=== PATIENT | female | born 1960 | race Hispanic/Latino ===

== ENCOUNTER 2025-09-02 23:34 | Emergency (ER) | payer OTHER ==
[~2025-09-02] VITALS: Ht 167.6 cm; Wt 61.2 kg
--- NOTE | 2025-09-03 00:48 | NUR ---
OBSERVED DRINKING PO FLUIDS. TOLERATING WELL
--- NOTE | 2025-09-03 01:15 | ERN ---
ED Note History of Present Illness Stated Complaint: RT ARTHRITIC PAIN Chief Complaint: Upper Extremity Pain/Injury Time Seen by MD: 23:39 Time Seen by Midlevel: 23:39 Dictation: The patient is a 65-year-old female with a history of arthritis, diabetes who presents to the emergency department with complaints of right shoulder pain. Patient reports she is having arthritis exacerbation because she was doing a lot of [place] her [place] today. Reports she usually gets this pain. Patient otherwise denies any shortness of breath, denies any chest pain, denies any nausea or vomiting. Denies any fevers. Patient reports pain is worse with movement Allergies: Coded Allergies: No Known Allergies (Unverified Allergy, Unknown, 09/02/25) Past Medical History Past Medical History: Arthritis Surgical History: Hysterectomy RN Note Reviewed/Agreed w/PFSH: Yes Review of System Dictation Constitutional: Negative for fever,chills, and weight loss Eyes: Negative for injury, pain,redness, and discharge ENT: Negative for injury,pain or swelling Cardiovascular: Negative for chest pain, palpitations, and edema Respiratory: Negative for shortness of breath, cough, and wheezing, Abdomen/GI: Negative for abdominal pain, nausea, vomiting, diarrhea, and constipation Back: Negative for injury and pain : Negative for injury, bleeding and discharge MS/Extremity: Positive for right shoulder pain Skin: Negative for rash, and discoloration Neuro: Negative for headache, weakness, numbness, tingling, and seizure Psych: Negative for suicide ideation, homicidal ideation, and hallucinations Initial Vital Sign VS Vital Signs Date Time Temp Pulse Resp B/P (MAP) Pulse Ox O2 Delivery O2 Flow Rate FiO2 09/02/25 23:36 98.2 78 16 154/84 99 Room Air 09/03/25 01:47 0 21 Physical Exam Dictation Vital Signs reviewed General Appearance: Alert, oriented x 3, no acute distress, well developed, nourished. Head and Face: non-traumatic. Eyes: PERRL, pink conjunctivas, eyelid no trauma, anterior chamber with arcus senilis. Ears: Pinnas intact and no signs of trauma or erythema ear canals clear and no discharge TM no erythema Nose: No discharge, no bleeding. Oropharynx: Mouth normal, tongue pink. pharynx clear,no erythema, tonsils no exudates, no abscesses noted, mucous membrane moist Neck: Supple, non-tender, no thyromegaly, no masses, no JVD, no bruits Breast:Deferred Chest:No tenderness, no crepitus, no paradoxical movement, no retractions Lungs:Clear, well-ventilated, symmetric, no rales, no wheezing, no rhonchi, no stridor, good breath sounds bilaterally Heart: Regular rate, regular rhythm, no murmur, no gallops Vascular: no peripheral edema, radial pulses 3+ bilaterally Abdomen: Soft, positive bowel sounds, nondistended, no guarding, nontender, no rebound, no masses no hepatomegaly, no splenomegaly, no Way's sign, no hernias. Rectal: Deferred Genital: Deferred Neurological: Normal speech, motor function intact, sensory function intact Musculoskeletal: Neck nontender, full range of motion, back nontender, full range of motion, Extremities: nontender, right shoulder limited range of motion, tenderness to palpation Skin: Color pink, dry, no turgor, no rash, no lacerations, no abrasions, no cont usions. Lymphatic: Deferred Results (Laboratory/Radiology) Laboratory/Radiology REASON: pain ORDERING PHYSICIAN: MASOUD MEDINA GLASS SELECTOR PROCEDURE: SHOL 2V RT - SHOULDER COMP 2+VWS RT EXAM: CR Right Shoulder, 2 views. CLINICAL HISTORY: Pain. COMPARISON: None provided. FINDINGS: No acute fracture or aggressively appearing osseous lesion. Decreased bone mineralization. Unremarkable joint spaces. The soft tissues are unremarkable. IMPRESSION: No acute bony changes. Osteopenia. /[place] Labs Reviewed?: Yes EKG: (+) rhythm (Sinus rhythm) EKG Comment: Date:09/03/2025 Time:0120 Ventricular rate:76 TN interval:163 QRS duration:92 QT/QTc:396/446 EKG interpretation: Sinus rhythm Reviewed by ED Attending no STEMI ED Course ED Course Orders Procedure Category Date Status Time Shoulder Comp 2+Vws Rt RAD 09/02/25 Resulted 23:45 Ketorolac PHA 09/03/25 Complete Tromethamine 30mg/Ml 00:00 Triamcinolone Acet PHA 09/03/25 Complete 40mg/Ml 1ml (Kenalog 00:00 12 Lead Ekg Tracing- EKG 09/03/25 Complete Technical 01:21 Ondansetron Odt 4mg PHA 09/03/25 Complete Tab (Zofran 4mg Odt) 02:30 Morphine 4mg Syg PHA 09/03/25 Complete (Morphine 4mg Syg) 02:30 Current Medications Medications (Trade) Dose Ordered Sig/Viet Route PRN Reason Start Time Stop Time Status Last Admin Dose Admin Ketorolac Tromethamine (toRADol) 30 mg ONCE ONCE IM 09/03/25 00:00 09/03/25 00:01 DC 09/03/25 01:34 Morphine Sulfate (morPHINE 4MG SYG) 4 mg ONCE ONCE IM 09/03/25 02:30 09/03/25 02:31 DC 09/03/25 02:49 Ondansetron HCl (zoFRAN 4MG ODT) 4 mg ONCE ONCE SL 09/03/25 02:30 09/03/25 02:31 DC 09/03/25 02:49 Triamcinolone Acetonide (Kenalog 40) 40 mg ONCE ONCE IM 09/03/25 00:00 09/03/25 00:01 DC 09/03/25 01:34 Vital Signs Date Time Temp Pulse Resp B/P (MAP) Pulse Ox O2 Delivery O2 Flow Rate FiO2 09/03/25 01:47 98.4 72 18 153/61 96 Room Air* 0 21 09/02/25 23:36 98.2 78 16 154/84 99 Room Air Medical Decision Making MDM The patient is a 65-year-old female with a history of arthritis, diabetes who presents to the emergency department with complaints of right shoulder pain. Patient reports she is having arthritis exacerbation because she was doing a lot of [place] today. Reports she usually gets this pain. Patient otherwise denies any shortness of breath, denies any chest pain, denies any nausea or vomiting. Denies any fevers. Patient reports pain is worse with movement X-ray showed no acute fractures or dislocations. Patient's pain significantly improved with the pain medications. Patient otherwise in no acute distress, nontoxic appearance, stable vital signs. Patient will be discharged to follow up with PCP. Differential diagnosis: Arthritis, shoulder dislocation, chronic pain Need for hospitalization: Patient does not meet criteria for hospitalization. There are no social concerns with this patient. DX & DISP Disposition: Discharge Departure Impression: Primary Impression: Right shoulder pain Additional Impression: Arthritis of right shoulder Condition: Stable Additional Instructions: Please follow up with your primary doctor in 1-2 days. Continue taking your pain medication at home as prescribed by your doctor. If anything worsens please return to ER. FOLLOW-UP WITH PRIMARY CARE PROVIDER IN 1 TO 2 DAYS. TAKE MEDICATIONS DIRECTED HERE IN THE EMERGENCY ROOM. OKAY TO CONTINUE HOME MEDICATIONS UNLESS OTHERWISE DISCUSSED DURING YOUR VISIT IN THE EMERGENCY ROOM TODAY. RETURN TO YOUR NEAREST EMERGENCY ROOM IF SYMPTOMS WORSEN OR IF THERE IS NO IMPROVEMENT. CALL 911 IF YOU NEED IMMEDIATE ASSISTANCE. TAKE TYLENOL QCET-PEX-UIAOSUN NEEDED AND IF NO CONTRAINDICATIONS ARE PRESENT. INCREASE ORAL HYDRATION. A WOUND CULTURE OR URINE CULTURE WAS ORDERED HERE IN THE EMERGENCY ROOM DEPARTMENT PLEASE FOLLOW-UP WITH PRIMARY CARE PROVIDER AND ADVISE THEM TO GET REPEAT PORTS FROM OUR FACILITY. IF YOU HAD ANY ROMULO WRAP/SPLINTS THAT WERE APPLIED HERE, PLEASE DO NOT REMOVE THEM UNTIL YOU SEE YOUR PRIMARY CARE OR SPECIALTY. Referrals: NONE (PCP) Time of Disposition: 02:58 I have reviewed the case, and I agree with, Diagnosis and Plan MASOUD MEDINAP Sep 03, 2025 01:15
--- NOTE | 2025-09-03 01:19 | HMCIMG ---
EXAM: CR Right Shoulder, 2 views. CLINICAL HISTORY: Pain. COMPARISON: None provided. FINDINGS: No acute fracture or aggressively appearing osseous lesion. Decreased bone mineralization. Unremarkable joint spaces. The soft tissues are unremarkable. IMPRESSION: No acute bony changes. Osteopenia. /[place]
--- NOTE | 2025-09-03 01:30 | EKG ---
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
[2025-09-03] MEDS: TRIAMCINOLONE ACETONIDE 40 MG/ML 1ML VIAL IM ONE (01:34)
[2025-09-03 01:47] VITALS: BP 153/61; PULSE 72; RESP 18; TEMP 98.5; O2SAT 96
--- NOTE | 2025-09-03 02:57 | NUR ---
SLING APPLIED TO R ARM, TOLERATED WELL
== END 2025-09-03 03:02 | disposition home or self-care (01) ==
LOC: EDH 23:34
DX: M19.011 Primary osteoarthritis, right shoulder (principal); M25.511 Pain in right shoulder; E11.9 Type 2 diabetes mellitus without complications; Z90.710 Acquired absence of both cervix and uterus
CPT/HCPCS: 99284; 73030; 96372 ×3; 93005; J1885; J2270; J3301

== ENCOUNTER 2025-09-15 07:40 | Emergency (ER) | payer OTHER ==
[~2025-09-15] VITALS: Ht 170.2 cm; Wt 62.6 kg
--- NOTE | 2025-09-15 07:53 | NUR ---
PATIENT PLACED IN ROOM
--- NOTE | 2025-09-15 08:04 | ERN ---
General Chief Complaint: Mechanical Fall Stated Complaint: FALL, HEAD INJURY, LT RIB PAIN Time Seen by MD: 07:43 Source: patient History of Present Illness Initial Comments My Patient, 65-year-old female, presented to the emergency department today with complaint of fall. Patient states that while feeding her dogs, she tripped over and fell down. She developed bruising around her right eye as well as left lower rib pain with mild pain in right side of neck. She denies loss of consciousness. She denies loss of sensation, headache or motor weakness. She denies any change in vision. Timing/Duration: 24 hours Severity: moderate Allergies: Coded Allergies: No Known Allergies (Unverified Allergy, Unknown, 09/02/25) Home Meds Active Scripts Azithromycin (Azithromycin) 250 Mg Tablet, 1 TAB PO AD for 5 Days, #6 TAB 0 Refills 2 the first day followed by 1 for days 2-5 Prov:ZACK GALE MD 09/15/25 Gabapentin (Gabapentin) 100 Mg Capsule, 1 CAP PO TID for 10 Days, #30 CAP 0 Refills Prov:ZACK GALE MD 09/15/25 Past Medical History Past Medical History: Arthritis, Diabetes-Type II Past Surgical History: Hysterectomy Constitutional: (-) chills, (-) diaphoresis, (-) fever, (-) malaise, (-) weakness, (-) other documentation EENTM: (-) eye pain, (-) blurred vision, (-) tearing, (-) double vision, (-) ear pain, (-) ear discharge, (-) nose pain, (-) nose congestion, (-) throat pain, (-) Throat swelling, (-) mouth pain, (-) tooth pain, (-) mouth swelling, (-) other documentation Respiratory: (-) cough, (-) orthopnea, (-) short of breath, (-) stridor, (-) wheezing, (-) other documentation Cardiovascular: (+) chest pain (Left lower pain ) Gastrointestinal/Abdominal: (-) nausea, (-) vomiting, (-) diarrhea, (-) abdominal pain, (-) abdominal distention, (-) constipation, (-) rectal bleeding, (-) dark stool/melena, (-) other documentation Genitourinary: (-) vaginal discharge, (-) vaginal bleeding, (-) dysuria, (-) frequency, (-) hematuria, (-) pain, (-) other documentation Musculoskeletal: (+) Neck pain, (+) joint pain (History of rheumatoid arthritis); (-) back pain, (-) Flank Pain, (-) joint swelling, (-) muscle pain, (-) muscle stiffness, (-) gout, (-) other documentation Skin: (+) contusion; (-) laceration, (-) abrasion, (-) abscess, (-) rash, (-) change in color, (-) change in hair, (-) change in nails, (-) diaphoresis, (-) dryness, (-) other documentation Neuro: (-) altered mental status, (-) headache, (-) syncope, (-) paralysis, (-) numbness, (-) seizure, (-) pre-existing deficit, (-) tremors, (-) weakness, (-) dizziness, (-) slurred speech, (-) vertigo, (-) other documentation Psych: (-) depression, (-) suicidal ideation, (-) anxiety, (-) emotional proble ms, (-) auditory hallucinations, (-) visual hallucinations Hematologic/Lymphatic: (-) anemia, (-) blood clots, (-) easy bleeding, (-) easy bruising, (-) swollen glands, (-) other documentation Physical Exam General Appearance: (+) no apparent distress Orientation: (+) alert, (+) oriented x 3 Eye: bilateral eye normal inspection, bilateral eye EOMI Ear, Nose, Throat: (+) hearing grossly normal, (+) normal ENT inspection, (+) moist mucous membraine Neck: (+) normal inspection, (+) supple, (+) full range of motion Respiratory: (+) lungs clear, (+) well ventilated, (+) other documentation (Pain with palpation on left lower chest) Heart: (+) regular, (+) no gallop Vascular: (+) no edema Gastrointestinal: (+) soft, (+) non-tender, (+) no organomegaly, (+) bowel sound present Back: (+) normal inspection, (+) no CVA tenderness, (+) no vertebral tenderness Extremities: (+) normal range of motion, (+) non-tender, (+) normal inspection Neurologic/Psychiatric: (+) normal speech, (+) no motor defecits, (+) no sensory deficits Results Laboratory and Microbiology Lab and Micro Result Laboratory Tests Test 09/15/25 08:00 White Blood Count 13.7 K/uL (4.8-10.8) H Red Blood Count 4.36 MIL/uL (4.00-5.50) Hemoglobin 12.5 g/dL (12.0-16.0) Hematocrit 38.1 % (36-48) Mean Corpuscular Volume 87.4 fL (79-99) Mean Corpuscular Hemoglobin 28.7 pg (27.0-33.0) Mean Corpuscular Hemoglobin Concent 32.8 g/dL (32.0-36.0) Red Cell Distribution Width 13.9 % (11.0-15.5) Platelet Count 281 K/uL (130-400) Mean Platelet Volume 10.1 fL (7.5-10.5) Nucleated Red Blood Cells 0.0 % (0.0-0.19) Sodium Level 137 mmol/L (136-145) Potassium Level 4.1 mmol/L (3.5-5.1) Chloride Level 100 mmol/L (101-111) L Carbon Dioxide Level 27 mmol/L (21-32) Blood Urea Nitrogen 22 mg/dL (7-18) H Creatinine 0.8 mg/dL (0.5-1.0) Glomerular Filtration Rate Calc 81 mL/min (>90) Random Glucose 219 mg/dL (70-105) H Total Calcium 9.2 mg/dL (8.5-10.1) Troponin I High Sensitivity 5 ng/L (4-50) EKG/XRAY/US/CT/MRI EKG Comment Rate: 80 P: 47 DE: 171 QRS: 26 QRSD: 87 T: 33 QT: 367 QTc: [address] elevation X-RAY Comment PATIENT: PARUL BRAGA MR#: [id number] : 1960 SEX: F AGE: 65 LOCATION: [facility] ORDER 08 STATUS: REG REPORT#: [id number] SERVICE REASON: Fall with point tenderness on left lower chest ORDERING PHYSICIAN: ZACK GALE MD PROCEDURE: RIB LT W C - RIBS UNI LT W PA CHEST 3+VWS EXAM: CR left Rib, 5 Views. CLINICAL HISTORY: Fall with point tenderness on the left lower chest COMPARISON: None provided. FINDINGS: LUNGS: The visualized lungs appear essentially clear. PLEURAL SPACES: No evidence of pneumothorax. No pleural effusion. BONES: Acute fracture of the left eighth rib. IMPRESSION: Acute hairline fracture of left eighth rib. /[place] DICTATED BY: MADHU BLANCO Jr., MD DATE: 09/15/25 1037 ELECTRONICALLY SIGNED BY: MADHU BLANCO Jr., MD DATE: 09/15/25 1037 PATIENT: PARUL BRAGA MR#: [id number] : 1960 SEX: F AGE: 65 LOCATION: [facility] ORDER 1 STATUS: REG REPORT#: [id number] SERVICE 7 REASON: Fall with point tenderness on left lower chest ORDERING PHYSICIAN: ZACK GALE MD PROCEDURE: CERV 4 5VW - CERV SPINE 4-5 VWS EXAM: CR Cervical spine, 3 views. CLINICAL HISTORY: Fall with point tenderness on the left lower chest. COMPARISON: None provided. FINDINGS: Mild osteopenia. Loss of cervical lordosis. Degenerative reduction in disc space at C4-C5, C5-C6, and C6-C7 levels with a degenerative anterior osteophyte. Minimal retrolisthesis of C4 over C5. Multilevel uncinate process hypertrophy and facet arthropathy from the C4-C7 level. Cervical alignment is within normal limits. Normal vertebral body heights. No acute fracture. The prevertebral soft tissues are within normal limits. The included lungs are clear. IMPRESSION: No acute bony changes. Mild osteopenia. Loss of cervical lordosis. Minimal retrolisthesis of C4 over C5. Moderate to severe degenerative changes in the cervical spine at C4-C5, C5-C6, and C6-C7 levels. /[place] DICTATED BY: MADHU BLANCO Jr., MD DATE: 09/15/25 100 ELECTRONICALLY SIGNED BY: MADHU BLANCO Jr., MD DATE: 09/15/[address] Scan Comment PATIENT: PARUL BRAGA MR#: [id number] : 1960 SEX: F AGE: 65 LOCATION: [facility] ORDER 9 STATUS: REG ER REPORT#: [id number] SERVICE [id number] REASON: History of fall with bruising around right eye ORDERING PHYSICIAN: ZACK GALE MD PROCEDURE: ORB IAC WO - CT ORB/AVELINA/EAR W/O CONTRAST EXAM: CT Head Without IV contrast. CLINICAL HISTORY: History of fall with bruising around right eye TECHNIQUE: Axial computed tomography images of the head/brain without intravenous contrast. COMPARISON: None provided. FINDINGS: BRAIN: No evidence of acute hemorrhage. No mass lesion. No CT evidence for acute territorial infarct. No midline shift or extra-axial collections. VENTRICLES: No hydrocephalus. ORBITS: The orbits are unremarkable. SINUSES AND MASTOIDS: The paranasal sinuses and mastoid air cells are clear. BONES: No fracture. SOFT TISSUES: Soft tissue edema in the right periorbital region. A few soft tissue calcifications are evident adjacent to the right zygomatic arch. Vascular calcifications adjacent to the bilateral masseter regions. IMPRESSION: No acute intracranial abnormality. /[place] DICTATED BY: MADHU BLANCO Jr., MD DATE: 09/15/25 1032 ELECTRONICALLY SIGNED BY: MADHU BLANCO Jr., MD DATE: 09/15/251031 MDM MDM: Differential diagnosis: Left rib fracture, fall This patient, 65-year-old female, presented to the emergency after a fall. She complained of left lower chest pain. She denied loss of consciousness, headache, any focal neurologic deficit. She denied being on blood thinner. * CBC was done which showed mild leukocytosis. * BMP, troponin and EKG were taken. * Left rib x-ray series was done which showed acute hairline fracture of left 8th rib. * CT orbit was done which showed no acute intracranial abnormality. * X-ray cervical spine was done which showed No acute bony changes. * Patient was given Tylenol. * Her condition is stable. She is being discharged with instruction to start gabapentin for pain. She will be provided with azithromycin due to mild leukocytosis. She has also been provided with inhaled spirometry and has been educated regarding how to use it. ED Course Orders Procedure Category Date Status Time Cbc Without LAB 09/15/25 Complete Differential 07:48 Basic Metabolic Panel LAB 09/15/25 Complete 07:48 Troponin I High LAB 09/15/25 Complete Sensitivity 07:48 12 Lead Ekg Tracing- EKG 09/15/25 Complete Technical 07:48 Acetaminophen 500mg PHA 09/15/25 Complete Tab (Tylenol 500mg T 08:00 Ct Orb/[place]/Ear W/O CT 09/15/25 Resulted Contrast 07:48 Ribs Uni Lt W Pa RAD 09/15/25 Resulted Chest 3+Vws 07:58 Cerv Spine 4-5 Vws RAD 09/15/25 Resulted 07:58 Cv Rt Incentive CPOE 09/15/25 Transmitted Spirometry 09:44 Current Medications Medications (Trade) Dose Ordered Sig/Viet Route PRN Reason Start Time Stop Time Status Last Admin Dose Admin Acetaminophen (TYLenol 500MG TAB) 500 mg ONCE ONCE PO 09/15/25 08:00 09/15/25 08:01 DC 09/15/25 08:10 Vital Signs Date Time Temp Pulse Resp B/P (MAP) Pulse Ox O2 Delivery O2 Flow Rate FiO2 09/15/25 09:04 98.8 75 17 130/56 98 Room Air* 0 21 09/15/25 08:26 98.8 88 20 154/58 99 Room Air* 0 21 09/15/25 07:42 98.8 88 20 154/58 99 Room Air DX & DISP Disposition: Discharge Departure Impression: Primary Impression: Fracture of left eighth rib Additional Impressions: Fall, Leukocytosis Condition: Stable Scripts Gabapentin (Gabapentin) 100 Mg Capsule 1 CAP PO BID for 7 Days, #14 CAP 0 Refills Prov: ARIC JUAREZ MD 09/15/25 Carboxymethylcellulose Sodium (Refresh Tears) 0.5 % Drops 1 DROP OP TID for 30 Days, #15 ML 0 Refills Prov: ARIC JUAREZ MD 09/15/25 Azithromycin (Azithromycin) 250 Mg Tablet 1 TAB PO AD for 5 Days, #6 TAB 0 Refills 2 the first day followed by 1 for days 2-5 Prov: ZACK GALE MD 09/15/25 Gabapentin (Gabapentin) 100 Mg Capsule 1 CAP PO TID for 10 Days, #30 CAP 0 Refills Prov: ZACK GALE MD 09/15/25 Additional Instructions: FOLLOW-UP WITH PRIMARY CARE PROVIDER IN 1 TO 2 DAYS. TAKE MEDICATIONS DIRECTED HERE IN THE EMERGENCY ROOM. OKAY TO CONTINUE HOME MEDICATIONS UNLESS OTHERWISE DISCUSSED DURING YOUR VISIT IN THE EMERGENCY ROOM TODAY. RETURN TO YOUR NEAREST EMERGENCY ROOM IF SYMPTOMS WORSEN OR IF THERE IS NO IMPROVEMENT. CALL 911 IF YOU NEED IMMEDIATE ASSISTANCE. TAKE TYLENOL [id number] NEEDED AND IF NO CONTRAINDICATIONS ARE PRESENT. INCREASE ORAL HYDRATION. A WOUND CULTURE OR URINE CULTURE WAS ORDERED HERE IN THE EMERGENCY ROOM DEPARTMENT PLEASE FOLLOW-UP WITH PRIMARY CARE PROVIDER AND ADVISE THEM TO GET REPORTS FROM OUR FACILITY. IF YOU HAD ANY ROMULO WRAP/SPLINTS THAT WERE APPLIED HERE, PLEASE DO NOT REMOVE THEM UNTIL YOU SEE YOUR PRIMARY CARE OR SPECIALTY. Referrals: Referrals: DOROTHY MEADOWS MD (PCP) Time of Disposition: 10:05 ZACK GALE MD Sep 15, 2025 08:04 ARIC JUAREZ MD Sep 15, 2025 10:07
--- NOTE | 2025-09-15 08:05 | EKG ---
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
[2025-09-15 08:12] LABS: NUCLEATED RED BLOOD CELLS 0.0 % (0.0-0.19); PLATELET COUNT (AUTO) 281.0 K/uL (130-400); RED BLOOD CELL COUNT(AUTO) 4.36 MIL/uL (4.00-5.50); RED CELL DISTRIBUTION WIDTH 13.9 % (11.0-15.5); WHITE BLOOD COUNT (AUTO) 13.7 K/uL (4.8-10.8)
[2025-09-15 08:15] LABS: CREATININE 0.8 mg/dL (0.5-1.0); GLOMERULAR FILTR. RATE CALC 81.0 mL/min (>90); GLUCOSE,RANDOM 219.0 mg/dL (70-105); SODIUM SERUM 137.0 mmol/L (136-145); UREA NITROGEN, BLOOD 22.0 mg/dL (7-18)
--- NOTE | 2025-09-15 09:06 | HMCIMG ---
EXAM: CR Cervical spine, 3 views. CLINICAL HISTORY: Fall with point tenderness on the left lower chest. COMPARISON: None provided. FINDINGS: Mild osteopenia. Loss of cervical lordosis. Degenerative reduction in disc space at C4-C5, C5-C6, and C6-C7 levels with a degenerative anterior osteophyte. Minimal retrolisthesis of C4 over C5. Multilevel uncinate process hypertrophy and facet arthropathy from the C4-C7 level. Cervical alignment is within normal limits. Normal vertebral body heights. No acute fracture. The prevertebral soft tissues are within normal limits. The included lungs are clear. IMPRESSION: No acute bony changes. Mild osteopenia. Loss of cervical lordosis. Minimal retrolisthesis of C4 over C5. Moderate to severe degenerative changes in the cervical spine at C4-C5, C5-C6, and C6-C7 levels. /[place]
--- NOTE | 2025-09-15 09:34 | HMCIMG ---
EXAM: CT Head Without IV contrast. CLINICAL HISTORY: History of fall with bruising around right eye TECHNIQUE: Axial computed tomography images of the head/brain without intravenous contrast. COMPARISON: None provided. FINDINGS: BRAIN: No evidence of acute hemorrhage. No mass lesion. No CT evidence for acute territorial infarct. No midline shift or extra-axial collections. VENTRICLES: No hydrocephalus. ORBITS: The orbits are unremarkable. SINUSES AND MASTOIDS: The paranasal sinuses and mastoid air cells are clear. BONES: No fracture. SOFT TISSUES: Soft tissue edema in the right periorbital region. A few soft tissue calcifications are evident adjacent to the right zygomatic arch. Vascular calcifications adjacent to the bilateral masseter regions. IMPRESSION: No acute intracranial abnormality. /[place]
--- NOTE | 2025-09-15 09:38 | HMCIMG ---
EXAM: CR left Rib, 5 Views. CLINICAL HISTORY: Fall with point tenderness on the left lower chest COMPARISON: None provided. FINDINGS: LUNGS: The visualized lungs appear essentially clear. PLEURAL SPACES: No evidence of pneumothorax. No pleural effusion. BONES: Acute fracture of the left eighth rib. IMPRESSION: Acute hairline fracture of left eighth rib. /[place]
--- NOTE | 2025-09-15 10:04 | NUR ---
IS TEACHING PROVIDED BY RT ANURADHA. PATIENT VERBALIZES UNDERSTANDING.
[2025-09-15 10:09] VITALS: BP 136/53; PULSE 74; RESP 17; TEMP 98.8; O2SAT 99
--- NOTE | 2025-09-15 10:21 | NUR ---
REINFORED TEACHING ON THE USAGE OF INCENTIVE SPIROMETER. PATIENT DEMENSTRATED THE USE OF IS. PATIENT VERBALIZES UNDERSTANDING.
== END 2025-09-15 10:24 | disposition home or self-care (01) ==
LOC: EDH 07:40
DX: S22.32XA Fracture of one rib, left side, initial encounter for closed fracture (principal); R07.81 Pleurodynia; M54.2 Cervicalgia; D72.829 Elevated white blood cell count, unspecified; E11.9 Type 2 diabetes mellitus without complications; M19.90 Unspecified osteoarthritis, unspecified site; Z79.899 Other long term (current) drug therapy; Z90.710 Acquired absence of both cervix and uterus; Z91.81 History of falling; W01.0XXA Fall on same level from slipping, tripping and stumbling without subsequent striking against object, initial encounter; Y93.89 Activity, other specified; Y92.89 Other specified places as the place of occurrence of the external cause; Y99.8 Other external cause status
CPT/HCPCS: 36415; 70480; 71101; 72050; 80048; 84484; 85027; 93005; 99285